=== PATIENT | female | born 1995 | race Caucasian/White ===

== ENCOUNTER 2021-10-19 11:38 | Emergency (ER) | payer OTHER, SELFPAY ==
[2021-10-19 11:50] VITALS: BP 111/72; PULSE 89; RESP 16; TEMP 36.3; O2SAT 100
--- NOTE | 2021-10-19 12:15 | DI.RAD_ITS ---
Exam(s) XR WRIST RT COMPLETE EXAM: XR WRIST RT COMPLETE CLINICAL HISTORY: fall onto R wrist/elbow, r/o fx. TECHNIQUE: 2D digital imaging was performed. Three views. COMPARISON: No exams were available for comparison FINDINGS: BONES: No acute fracture is present. No bony destructive lesion is seen. JOINTS: The carpal bones are normally aligned. SOFT TISSUE: Normal. IMPRESSION: Unremarkable radiographs of the right wrist. DATA REPOSITORY: RADIATION DOSE DELIVERED:
[2021-10-19] MEDS: Ibuprofen 600 MG TAB PO (12:30)
--- NOTE | 2021-10-19 12:47 | DI.RAD_ITS ---
Exam(s) XR ELBOW RT COMPLETE EXAM: XR ELBOW RT COMPLETE CLINICAL HISTORY: fall onto R elbow, r/o fx. TECHNIQUE: 2D digital imaging was performed. Three views COMPARISON: No exams were available for comparison FINDINGS: BONES: No acute fracture is present. No bony destructive lesion is seen. JOINTS: The elbow is normally aligned. No joint effusion is seen. SOFT TISSUE: Normal. IMPRESSION: Unremarkable radiographs of the right elbow. DATA REPOSITORY: RADIATION DOSE DELIVERED:
--- NOTE | 2021-10-19 12:52 | W.ED.GENAD ---
Discharge Plan Disposition Patient Disposition: HOME Condition: Stable Discharge Details Clinical Impression: Right wrist sprain, Sprain of right elbow Primary Care Provider: Shasha,Local ED Provider: Mimi Kumar Home Meds and New Rx's Prescriptions: Continued Trulicity 1.5 mg/0.5 mL Pen Injector 1.5 mg SUBCUT DIRECTED 0RF Rx Instructions: weekly Discharge Instructions Instructions: Elbow Sprain (ED), Wrist Sprain (ED) Additional Instructions: Your x-rays today were negative for a fracture. Keep the right wrist splint and sling in place as much as possible. Rest, ice, and elevate the affected area as much as possible. Follow-up with your Worker's Compensation provider next week for further evaluation and for referral for repeat x-ray of your right wrist in 1 week to rule out a potential scaphoid fracture and for repeat x-ray of your right elbow if indicated. Alternate tylenol and motrin as needed and directed for pain. Return immediately to the emergency department if you develop any worsening or new concerning symptoms. Stand Alone Forms: Work Release Referrals: Hugh Crump MD [ [facility] STAFF PHYSICIAN] - Discharge Data Discharge Date/Time-TO BE ENTERED AT DEPARTURE: 10/19/21 13:52 Discharge Physician: Mimi Kumar Medical Decision Making 26-year-old female presents with right elbow and wrist pain after fall from standing height prior to arrival. Patient has tenderness overlying her radial head and lateral epicondyle. She also has tenderness to the right snuffbox and dorsal lateral wrist. Neurovascular intact. No deformity. Patient referred for x-ray of wrist and elbow which were unremarkable. She had a sling placed at the [facility]. She was given a right wrist splint with recommendations for repeat x-ray of her wrist in 1 week to rule out scaphoid fracture. Patient also given orthopedic follow-up information. She was advised to follow-up with her Worker's Compensation physician for reevaluation if needs a repeat elbow x-ray. Usual and customary return precautions given prior to discharge. Medical Records Medical records reviewed: Yes I reviewed the patient's medical records. Imaging Data Radiologic Study: Radiologist's impression: XR ELBOW RT COMPLETE CLINICAL HISTORY: ? fall onto R elbow, r/o fx.? TECHNIQUE:? 2D digital imaging was performed.? Three views COMPARISON:? No exams were available for comparison FINDINGS: BONES: No acute fracture is present. No bony destructive lesion is seen. JOINTS: The elbow is normally aligned. No joint effusion is seen. SOFT TISSUE: Normal. IMPRESSION: Unremarkable radiographs of the right elbow. XR WRIST RT COMPLETE CLINICAL HISTORY: ? fall onto R wrist/elbow, r/o fx.? TECHNIQUE:? 2D digital imaging was performed.? Three views. COMPARISON:? No exams were available for comparison FINDINGS: BONES: No acute fracture is present. No bony destructive lesion is seen. JOINTS: The carpal bones are normally aligned. SOFT TISSUE: Normal. IMPRESSION: Unremarkable radiographs of the right wrist. HPI General Mode of arrival: ambulatory. Date/Time Provider Initiated Documentation: 10/19/21 12:20. Limitations to Documentation: no limitations. Information obtained by: patient. HPI Narrative: Patient is a 26-year-old female presents with right elbow and wrist pain after fall from a standing position at work. Patient states she placed her arm behind her and fell onto a hyperextended arm and elbow. She states she is having pain in the lateral elbow and lateral wrist. She denies any other injuries. Patient was seen at the [facility] for this and was sent here for further evaluation including x-ray and splint placement if indicated. Related Data Home Medications Medication Instructions Recorded Confirmed dulaglutide 1.5 mg/0.5 mL 1.5 mg SUBCUT DIRECTED 10/19/21 10/19/21 subcutaneous pen injector (Trulicity) Allergies Allergy/AdvReac Type Severity Reaction Status Date / Time codeine AdvReac Other (See Unverified 10/19/21 11:53 Comment) General Stated Complaint: Orthopedic AUBREY: 4 Review of Systems All systems reviewed & are unremarkable except as noted in HPI and below Constitutional Constitutional: Reports as per HPI, Denies chills and Denies fever(s) Eyes Eyes: Denies blurry vision ENT Ears, Nose, Mouth, and Throat: Denies dizziness, Denies sore throat and Denies throat swelling Cardiovascular Cardiovascular: Denies chest pain and Denies dyspnea Respiratory Respiratory: Denies cough and Denies dyspnea Gastrointestinal Gastrointestinal: Denies abdominal pain, Denies diarrhea and Denies vomiting Genitourinary Genitourinary: Denies hematuria and Denies dysuria Musculoskeletal Musculoskeletal: Denies back pain and Denies numbness Comments: R wrist and elbow pain Integumentary/Breasts Skin/Breast: Denies lesions and Denies rash Neurologic Neurologic: Denies dizziness, Denies localized weakness and Denies numbness Allergic/Immunologic Allergic/Immunologic: Denies throat swelling PFSH All Active Problems (Updated 10/19/21 @ 13:39 by Mimi Kumar DO) Right wrist sprain (Acute) Sprain of right elbow (Acute) Medical History (Updated 10/19/21 @ 13:39 by Mimi Kumar DO) Diabetes Surgical History (Updated 10/19/21 @ 13:38 by Mimi Kumar DO) No significant past surgical history Social History Smoking/Tobacco Use Status: Current every day Smoking risk assessment performed?: Yes Alcohol Intake: never Drug use: Never Substance use type: does not use Do you feel safe at home: Yes Do you feel safe in your relationship?: Yes Exam Const General: cooperative, healthy appearing and no acute distress Orientation: alert, awake and oriented x3 HENMT Head: normal to inspection Mouth: oral mucosae normal Eyes General: appearance normal, both eyes and all related structures Neck Neck: normal visual inspection Resp Effort & Inspection: normal respiratory effort and able to speak in complete sentences Cardio Rate: regular rate Skin General skin exam: no rashes or lesions noted Neuro General: patient alert, patient awake and patient oriented x3 Motor: muscle tone normal throughout Extrem Elbow/forearm/wrist images: 1. Tenderness to palpation to right radial head and right lateral epicondyle. No significant tenderness overlying olecranon or right medial epicondyle. There is no edema, ecchymosis, erythema, crepitus or 2. Tenderness to palpation to right dorsal wrist and right snuffbox tenderness. There is no deformity, edema, erythema, crepitus. Other: Right radial ulnar pulses intact. No tenderness to palpation to right mid forearm, upper arm, shoulder, or clavicle. Psych Appearance: grossly normal Affect: normal affect Course Vital Signs Vital signs: Vital Signs Temperature 97.3 F L 10/19/21 11:50 Pulse 89 10/19/21 11:50 Respiratory Rate 16 10/19/21 11:50 Blood Pressure 111/72 10/19/21 11:50 Pulse Oximetry 100 10/19/21 11:50 Temperature 97.3 F L 10/19/21 11:50 Temperature Source Temporal Artery Scan 10/19/21 11:50 Pulse 89 10/19/21 11:50 Respiratory Rate 16 10/19/21 11:50 Respiratory Effort Non-Labored 10/19/21 11:57 Blood Pressure 111/72 10/19/21 11:50 Blood Pressure Position Sitting 10/19/21 11:50 Pulse Oximetry 100 10/19/21 11:50 Oxygen Delivery Method Room Air 10/19/21 11:50 Oxygen Flow Rate 0 10/19/21 11:50 Lab/Test Results Lab/Test Results: POC- Test(urine) Negative
--- NOTE | 2021-10-19 14:18 | NUR.NOTE ---
Nursing Note: At the patient's request I faxed the work note and discharge instructions to her place of employment; [employer] [facility] [employer]. Attention to Gemma Rico. Khushi Oquendo
== END 2021-10-19 13:52 | disposition home or self-care (01) ==
PROVIDERS: Emergency Provider Physician Assistant
DX: S63.591A Other specified sprain of right wrist, initial encounter (principal); S53.491A Other sprain of right elbow, initial encounter; W18.39XA Other fall on same level, initial encounter; Y99.0 Civilian activity done for income or pay
CPT/HCPCS: 29125; 81025; 99284; 73080; 73110; 99283